=== PATIENT | female | born 1955 | race Caucasian/White ===

== ENCOUNTER 2017-02-27 16:31 | Inpatient (IN) | payer MEDICARE, OTHER ==
[~2017-02-27] VITALS: Ht 167.6 cm; Wt 86.4 kg
[2017-02-27 18:11] VITALS: BP 132/73
[2017-02-27] MEDS ORDERED: normal saline 1000ml 1,000 ML IV SCH (18:18)
[2017-02-27] MEDS ORDERED: HYDROcodone/acetaminophen 5mg/325mg tablet PO PRN (18:20)
[2017-02-27] MEDS ORDERED: ondansetron/PF 4mg/2ml inj IV PRN (18:20)
[2017-02-27] MEDS ORDERED: acetaminophen 325mg tablet PO PRN (18:20)
[2017-02-27] MEDS ORDERED: diphenhydrAMINE 25mg capsule PO PRN (18:20)
[2017-02-27] MEDS ORDERED: magnesium hydroxide 30ml (MOM) UD suspension PO PRN (18:20)
[2017-02-27] MEDS ORDERED: mag hydrox/Alum hydrox/simeth 30ml oral suspension PO PRN (18:20)
[2017-02-27] MEDS ORDERED: cyclobenzaprine 10mg tablet PO PRN (18:25)
[2017-02-27] MEDS ORDERED: haloperidol lactate 5mg/ml inj IM PRN (18:25)
[2017-02-27] MEDS ORDERED: loperamide 2mg capsule PO PRN (18:25)
[2017-02-27] MEDS ORDERED: LORazepam 1 MG tablet PO PRN (18:25)
[2017-02-27] MEDS ORDERED: haloperidol 5mg tablet PO PRN (18:25)
[2017-02-27] MEDS ORDERED: LORazepam 2 mg/ml vial IV PRN (18:25)
[2017-02-27] MEDS ORDERED: cloNIDine 0.1 mg tablet PO PRN (18:25)
[2017-02-27] MEDS ORDERED: dicyclomine 10 MG capsule PO PRN (18:25)
[2017-02-27] MEDS ORDERED: potassium Cl 20 mEq SR tablet PO PRN ×2 (18:30)
[2017-02-27] MEDS ORDERED: potassium Cl 40MEQ/NS 500ml 500 ML IV PRN ×2 (18:30)
[2017-02-27] MEDS: HYDROcodone/acetaminophen 10/325mg tab PO PRN (20:33)
[2017-02-27 20:56] LABS: CLARITY,URINE CLEAR (Clear); COLOR,URINE AMBER (Yellow); GLUCOSE, URINE NEGATIVE (Neg); KETONES,URINE TRACE mg/dl (Neg); LEUKOCYTE ESTERASE ,URINE NEGATIVE (Neg); NITRITES, URINE NEGATIVE (Neg); OCCULT BLOOD,URINE NEGATIVE (Neg); PH,URINE 5.5 (4.8-8.0); PROTEIN,URINE NEGATIVE (Neg); UROBILINOGEN,URINE 0.2 E.U/dL (0.2-1.0)
[2017-02-27 20:57] LABS: UA COLLECTION TYPE VOIDED
[2017-02-27 22:00] VITALS: BP 127/80
[2017-02-28] MEDS: HYDROcodone/acetaminophen 10/325mg tab PO PRN ×4 (05:28→19:00)
[2017-02-28 05:32] VITALS: BP 127/80
[2017-02-28 06:00] VITALS: BP 132/75
[2017-02-28 06:03] LABS: BASOPHILS % (AUTO) 0.6 % (0-1); EOSINOPHILS # (AUTO) 0.1 X10'3 (0-0.9); EOSINOPHILS % (AUTO) 1.3 % (0-6); HEMATOCRIT 40.8 % (35.0-45.0); HEMOGLOBIN 14.1 g/dl (12.0-16.0); LYMPHOCYTES # (AUTO) 1.5 X10'3 (1.1-4.8); LYMPHOCYTES % (AUTO) 25.1 % (21-51); MEAN CORPUSCULAR HGB CONC 34.6 % (33.0-36.5); MEAN PLATELET VOLUME 8.4 FL (7.4-10.4); MONOCYTES # (AUTO) 0.6 X10'3 (0-0.9); MONOCYTES % (AUTO) 9.7 % (2-12); NEUTROPHILS # (AUTO) 3.7 X10'3 (1.8-7.7); NEUTROPHILS % (AUTO) 63.3 % (42-75); PLATELET COUNT 238 X10'3 (140-440); RED BLOOD COUNT 3.92 X10'6 (4.20-5.60); RED CELL DISTRIBUTION WIDTH 13.7 % (11.5-14.5); WHITE BLOOD COUNT 5.8 X10'3 (4.5-11.0)
[2017-02-28 06:25] LABS: ALBUMIN 3.1 G/DL (3.4-5.0); AMYLASE 44 U/L (25-115); ANION GAP 6 (8-16); BLOOD UREA NITROGEN 4 MG/DL (7-18); BUN/CREATININE RATIO 6.8 (6.6-38.0); CALCIUM 9.1 MG/DL (8.5-10.1); CHLORIDE 104 MMOL/L (99-107); CREATININE 0.59 MG/DL (0.40-0.90); GLUCOSE 109 MG/DL (70-104); MAGNESIUM 1.6 MG/DL (1.5-2.4); PHOSPHORUS 3.5 MG/DL (2.3-4.5); POTASSIUM 3.8 MMOL/L (3.5-5.1); SODIUM 140 MMOL/L (135-145); TOTAL CARBON DIOXIDE 29.9 MMOL/L (24-32); eGFR > 90 ML/MIN
[2017-02-28] MEDS: thiamine inj. 100 MG, magnesium sulf injection 2 GM, MVI, adult No.4 with vit. K 10 ML ... IV SCH ×4 (08:17)
[2017-02-28 10:00] VITALS: BP 114/76
[2017-02-28] MEDS ORDERED: NO HOME MEDS (10:38)
[2017-02-28] MEDS ORDERED: HYDROcodone/acetaminophen 5mg/325mg tablet PO PRN (13:15)
[2017-02-28] MEDS ORDERED: cefazolin 1gm/NS 100mL 100 ML IV ONE (15:00)
[2017-02-28 19:00] VITALS: BP 103/63
[2017-02-28 22:30] VITALS: BP 126/69
[2017-03-01] VITALS (16 sets, daily range): BP systolic 100–141; BP diastolic 45–76
[2017-03-01 06:09] LABS: BASOPHILS % (AUTO) 0.5 % (0-1); EOSINOPHILS # (AUTO) 0.1 X10'3 (0-0.9); EOSINOPHILS % (AUTO) 2.1 % (0-6); HEMATOCRIT 38.3 % (35.0-45.0); HEMOGLOBIN 13.2 g/dl (12.0-16.0); LYMPHOCYTES # (AUTO) 1.2 X10'3 (1.1-4.8); LYMPHOCYTES % (AUTO) 18.4 % (21-51); MEAN CORPUSCULAR HEMOGLOBIN 36.1 PG (27.0-31.0); MEAN CORPUSCULAR HGB CONC 34.5 % (33.0-36.5); MEAN CORPUSCULAR VOLUME 104.6 FL (78-98); MEAN PLATELET VOLUME 8.2 FL (7.4-10.4); MONOCYTES # (AUTO) 0.6 X10'3 (0-0.9); MONOCYTES % (AUTO) 9.5 % (2-12); NEUTROPHILS # (AUTO) 4.5 X10'3 (1.8-7.7); NEUTROPHILS % (AUTO) 69.5 % (42-75); PLATELET COUNT 213 X10'3 (140-440); RED BLOOD COUNT 3.66 X10'6 (4.20-5.60); RED CELL DISTRIBUTION WIDTH 13.6 % (11.5-14.5); WHITE BLOOD COUNT 6.4 X10'3 (4.5-11.0)
[2017-03-01 06:21] LABS: ALBUMIN 2.9 G/DL (3.4-5.0); AMYLASE 40 U/L (25-115); ANION GAP 4 (8-16); BLOOD UREA NITROGEN 4 MG/DL (7-18); BUN/CREATININE RATIO 7.7 (6.6-38.0); CALCIUM 8.9 MG/DL (8.5-10.1); CHLORIDE 104 MMOL/L (99-107); CREATININE 0.52 MG/DL (0.40-0.90); GLUCOSE 112 MG/DL (70-104); MAGNESIUM 1.9 MG/DL (1.5-2.4); PHOSPHORUS 3.9 MG/DL (2.3-4.5); POTASSIUM 3.4 MMOL/L (3.5-5.1); SODIUM 138 MMOL/L (135-145); TOTAL CARBON DIOXIDE 29.7 MMOL/L (24-32); eGFR > 90 ML/MIN
[2017-03-01] MEDS ORDERED: ceFAZolin 1000mg inj ONE (07:01)
[2017-03-01] MEDS: LACTOBACILLUS RHAMNOSUS GG 15 billion unit sprinkle caps PO SCH (07:30)
[2017-03-01] MEDS: thiamine inj. 100 MG, magnesium sulf injection 2 GM, MVI, adult No.4 with vit. K 10 ML ... IV SCH ×4 (07:55)
[2017-03-01] MEDS ORDERED: ringers solution, lacted 1,000 ML IV SCH (08:27)
[2017-03-01] MEDS ORDERED: meperidine/PF 25mg/ml syringe IV PRN ×3 (08:30)
[2017-03-01] MEDS ORDERED: proCHLORperazine 10 MG/2 ml inj IV PRN (08:30)
[2017-03-01] MEDS ORDERED: ondansetron/PF 4mg/2ml inj IV PRN ×2 (08:30→12:30)
[2017-03-01] MEDS ORDERED: cefazolin 1gm/NS 100mL 100 ML IV ONE ×2 (08:30→12:30)
[2017-03-01 08:47] LABS: PARTIAL THROMBOPLASTIN TIME 26 SECONDS (22-32)
[2017-03-01] MEDS ORDERED: ondansetron/PF 4mg/2ml inj ONE (09:20)
[2017-03-01] MEDS ORDERED: sevoflurane 250ml liquid IH ONE (09:20)
[2017-03-01] MEDS ORDERED: dexamethasone sod phosphate 4mg/ml inj. ONE (09:20)
[2017-03-01] MEDS ORDERED: fentaNYL/PF 50MCG/1 ML 2ML syringe ONE ×2 (09:22→09:55)
[2017-03-01] MEDS ORDERED: midazolam 2 mg/2 ml injection ONE (09:23)
[2017-03-01] MEDS ORDERED: LIDOcaine 1%/PF (10mg/ml) 5ml vial ONE (09:43)
[2017-03-01] MEDS ORDERED: tranexamic acid inj. 1,000 MG in normal saline 100ml IV soln 90 ML IV ONE (10:45)
[2017-03-01] MEDS ORDERED: vancomycin 1,000mg inj ONE (11:57)
[2017-03-01] MEDS ORDERED: magnesium hydroxide 30ml (MOM) UD suspension PO PRN (12:30)
[2017-03-01] MEDS ORDERED: oxyCODONE IR 5mg (immed. release) tablet PO PRN (12:30)
[2017-03-01] MEDS ORDERED: bisacodyl 10mg suppository rectal RC PRN (12:30)
[2017-03-01] MEDS ORDERED: diphenhydrAMINE 25mg capsule PO PRN ×2 (12:30)
[2017-03-01] MEDS ORDERED: acetaminophen 325mg tablet PO PRN (12:30)
[2017-03-01] MEDS: acetaminophen 325mg tablet PO SCH ×2 (15:05→21:57)
[2017-03-01] MEDS: gabapentin 300mg capsule PO SCH ×2 (15:05→21:57)
[2017-03-01] MEDS ORDERED: NORMAL SALINE IV ONE (15:30)
[2017-03-01] MEDS ORDERED: TRANEXAMIC ACID IV ONE (15:30)
[2017-03-01] MEDS: cefazolin 1gm/NS 100mL 100 ML IV SCH (16:30)
[2017-03-01] MEDS ORDERED: vancomycin/NS 1 GM ADD-VANTAGE 250 ML IV SCH (20:00)
[2017-03-01] MEDS ORDERED: sennosides 8.6mg tablet PO SCH (21:00)
[2017-03-02] MEDS: acetaminophen 325mg tablet PO SCH ×2 (00:05→08:45)
[2017-03-02] MEDS: cefazolin 1gm/NS 100mL 100 ML IV SCH (00:07)
[2017-03-02] MEDS: HYDROcodone/acetaminophen 10/325mg tab PO PRN (00:07)
[2017-03-02 02:00] VITALS: BP 93/45
[2017-03-02] MEDS: oxyCODONE IR 5mg (immed. release) tablet PO PRN ×2 (04:36→08:48)
[2017-03-02 07:19] VITALS: BP 113/66
[2017-03-02 07:22] LABS: BASOPHILS % (AUTO) 0.1 % (0-1); EOSINOPHILS # (AUTO) 0.1 X10'3 (0-0.9); EOSINOPHILS % (AUTO) 1.1 % (0-6); HEMATOCRIT 33.5 % (35.0-45.0); HEMOGLOBIN 11.4 g/dl (12.0-16.0); LYMPHOCYTES # (AUTO) 1.5 X10'3 (1.1-4.8); LYMPHOCYTES % (AUTO) 17.4 % (21-51); MEAN CORPUSCULAR HEMOGLOBIN 35.6 PG (27.0-31.0); MEAN CORPUSCULAR HGB CONC 33.9 % (33.0-36.5); MEAN PLATELET VOLUME 8.7 FL (7.4-10.4); MONOCYTES # (AUTO) 0.9 X10'3 (0-0.9); MONOCYTES % (AUTO) 10.4 % (2-12); NEUTROPHILS # (AUTO) 6.1 X10'3 (1.8-7.7); PLATELET COUNT 261 X10'3 (140-440); RED BLOOD COUNT 3.19 X10'6 (4.20-5.60); RED CELL DISTRIBUTION WIDTH 13.8 % (11.5-14.5); WHITE BLOOD COUNT 8.6 X10'3 (4.5-11.0)
[2017-03-02 07:37] LABS: ALBUMIN 2.8 G/DL (3.4-5.0); AMYLASE 55 U/L (25-115); ANION GAP 6 (8-16); BLOOD UREA NITROGEN 7 MG/DL (7-18); BUN/CREATININE RATIO 7.8 (6.6-38.0); CALCIUM 8.7 MG/DL (8.5-10.1); CHLORIDE 103 MMOL/L (99-107); GLUCOSE 122 MG/DL (70-104); MAGNESIUM 2.2 MG/DL (1.5-2.4); PHOSPHORUS 4.4 MG/DL (2.3-4.5); POTASSIUM 3.6 MMOL/L (3.5-5.1); SODIUM 138 MMOL/L (135-145); TOTAL CARBON DIOXIDE 29.4 MMOL/L (24-32); eGFR 63 ML/MIN
[2017-03-02] MEDS ORDERED: multivitamins, therapeutics tablet PO SCH (08:30)
[2017-03-02] MEDS ORDERED: thiamine 100mg tablet PO SCH (08:30)
[2017-03-02] MEDS: LACTOBACILLUS RHAMNOSUS GG 15 billion unit sprinkle caps PO SCH (08:45)
[2017-03-02] MEDS: gabapentin 300mg capsule PO SCH (08:45)
[2017-03-02] MEDS ORDERED: HYDR-3972 PO (09:19)
[2017-03-02] MEDS ORDERED: magnesium oxide 400mg tablet PO SCH (16:00)
[2017-03-03] MEDS ORDERED: acetaminophen 325mg tablet PO PRN (12:30)
== END 2017-03-02 12:00 | disposition home or self-care (01) | DRG 483 ==
LOC: ORTHO 4S 17:57
PROVIDERS: ADMIT Internal Medicine; ATTEND Internal Medicine
PROC: 3E0T3BZ Introduction of Anesthetic Agent into Peripheral Nerves and Plexi, Percutaneous Approach (ICD-10-PCS; 2017-03-01)
PROC: 0RRK00Z Replacement of Left Shoulder Joint with Reverse Ball and Socket Synthetic Substitute, Open Approach (ICD-10-PCS; principal; 2017-03-01 09:20)
DX: S42.292A Other displaced fracture of upper end of left humerus, initial encounter for closed fracture (principal); D62 Acute posthemorrhagic anemia; E66.01 Morbid (severe) obesity due to excess calories; E78.5 Hyperlipidemia, unspecified; S80.02XA Contusion of left knee, initial encounter; E87.6 Hypokalemia; F10.10 Alcohol abuse, uncomplicated; F17.210 Nicotine dependence, cigarettes, uncomplicated; W01.0XXA Fall on same level from slipping, tripping and stumbling without subsequent striking against object, initial encounter; Z80.49 Family history of malignant neoplasm of other genital organs; Z80.0 Family history of malignant neoplasm of digestive organs; Z80.8 Family history of malignant neoplasm of other organs or systems; Z68.30 Body mass index [BMI] 30.0-30.9, adult; Y93.89 Activity, other specified; Y92.89 Other specified places as the place of occurrence of the external cause; Y99.8 Other external cause status
CPT/HCPCS: 36415; 71045; 73020; 73200; 73564; 80048; 81003; 82150; 83735; 84100; 85025; 85610; 85730; 87070; 93005; 93306; 97110; 97116; 97162; A4565; A6209; A6255; A6258; A6446; A7000; C9250; J0690; J1100; J2001; J2250; J2270; J2405; J3010; J3370; J3411; J3475; J7030; J7060; J7120

== ENCOUNTER 2017-03-17 11:19 | Outpatient (CLI) | payer MEDICARE, OTHER ==
[~2017-03-17 11:19] MED LIST: HYDR-3972 PO; NO HOME MEDS
== END 2017-03-17 12:05 | disposition home or self-care (01) ==
LOC: ORTHO 11:19
PROVIDERS: ATTEND Nurse Practitioner Family
DX: S42.202A Unspecified fracture of upper end of left humerus, initial encounter for closed fracture (principal); I89.0 Lymphedema, not elsewhere classified; F17.210 Nicotine dependence, cigarettes, uncomplicated; F10.10 Alcohol abuse, uncomplicated; Z98.890 Other specified postprocedural states; X58.XXXA Exposure to other specified factors, initial encounter; Y93.89 Activity, other specified; Y92.89 Other specified places as the place of occurrence of the external cause; Y99.8 Other external cause status
CPT/HCPCS: 73030; A6449

== ENCOUNTER 2017-04-26 09:55 | Outpatient (CLI) | payer MEDICARE, OTHER ==
[2017-04-26 10:04] VITALS: BP 160/94
== END 2017-04-26 10:30 | disposition home or self-care (01) ==
LOC: ORTHO 09:55
PROVIDERS: ATTEND Nurse Practitioner Family
DX: S42.202D Unspecified fracture of upper end of left humerus, subsequent encounter for fracture with routine healing (principal); F17.210 Nicotine dependence, cigarettes, uncomplicated; I89.0 Lymphedema, not elsewhere classified; Z56.0 Unemployment, unspecified; X58.XXXD Exposure to other specified factors, subsequent encounter
CPT/HCPCS: 73030; 99213

== ENCOUNTER 2017-06-28 08:55 | Outpatient (CLI) | payer MEDICARE, OTHER | END 2017-06-28 09:52 | disposition home or self-care (01) | LOC: ORTHO 08:55 | PROVIDERS: ATTEND Nurse Practitioner Family | DX: S42.202D Unspecified fracture of upper end of left humerus, subsequent encounter for fracture with routine healing (principal); F17.200 Nicotine dependence, unspecified, uncomplicated; Z56.0 Unemployment, unspecified; W01.0XXD Fall on same level from slipping, tripping and stumbling without subsequent striking against object, subsequent encounter | CPT/HCPCS: 73030 ==

== ENCOUNTER 2018-10-27 22:27 | Emergency (ER) | payer MEDICARE ==
[~2018-10-27] VITALS: Ht 167.6 cm; Wt 90.9 kg
[2018-10-27] MEDS ORDERED: morphine 4 MG/ML inj SYRINge IV ONE (22:55)
[2018-10-27 22:59] LABS: BASOPHILS # (AUTO) 0.1 X10'3 (0-0.2); HEMOGLOBIN 13.4 g/dl (12.0-16.0); LYMPHOCYTES # (AUTO) 1.7 X10'3 (1.1-4.8); MONOCYTES # (AUTO) 0.6 X10'3 (0-0.9); NEUTROPHILS # (AUTO) 5.4 X10'3 (1.8-7.7); WHITE BLOOD COUNT 7.8 X10'3 (4.5-11.0)
[2018-10-27 23:01] LABS: BASOPHILS % (AUTO) 1.3 % (0-1); EOSINOPHILS % (AUTO) 0.6 % (0-6); LYMPHOCYTES % (AUTO) 21.1 % (21-51); MEAN CORPUSCULAR HEMOGLOBIN 39.5 PG (27.0-31.0); MEAN CORPUSCULAR HGB CONC 34.4 g/dL (33.0-36.5); MEAN CORPUSCULAR VOLUME 114.8 FL (78-98); MEAN PLATELET VOLUME 7.7 FL (7.4-10.4); MONOCYTES % (AUTO) 7.6 % (2-12); NEUTROPHILS % (AUTO) 69.4 % (42-75); PLATELET COUNT 245 X10'3 (140-440); RED CELL DISTRIBUTION WIDTH 14.2 % (11.5-14.5)
[2018-10-27 23:12] LABS: PARTIAL THROMBOPLASTIN TIME 25 SECONDS (22-32)
[2018-10-27 23:14] LABS: ALANINE AMINOTRANSFERASE 35 U/L (12-78); ALBUMIN 2.4 G/DL (3.4-5.0); ALBUMIN/GLOBULIN RATIO 0.7 (1.1-1.5); ALKALINE PHOSPHATASE 170 IU/L (46-116); ANION GAP 11 (8-16); ASPARTATE AMINO TRANSFERASE 107 U/L (10-37); BILIRUBIN,TOTAL 0.8 MG/DL (0.1-1.0); BLOOD UREA NITROGEN 2 MG/DL (7-18); BUN/CREATININE RATIO 3.2 (6.6-38.0); CALCIUM 8.2 MG/DL (8.5-10.1); CHLORIDE 102 MMOL/L (99-107); CREATININE 0.63 MG/DL (0.40-0.90); GLUCOSE 104 MG/DL (70-104); POTASSIUM 3.3 MMOL/L (3.5-5.1); SODIUM 138 MMOL/L (135-145); TOTAL CARBON DIOXIDE 24.7 MMOL/L (24-32); TOTAL PROTEIN 5.7 G/DL (6.4-8.2); eGFR > 90 ML/MIN
[2018-10-27 23:18] LABS: ETHANOL 0.139 GM/DL (0.0-0.010); TROPONIN I < 0.04 NG/ML (0.0-0.05)
[2018-10-27 23:26] LABS: PLATELET ESTIMATE NORMAL
[2018-10-28] MEDS ORDERED: morphine 4 MG/ML inj SYRINge IV ONE (01:45)
[2018-10-28] MEDS ORDERED: propofol 10mg/ml 20ml vial IV ONE (02:00)
[2018-10-28] MEDS ORDERED: ceFAZolin 1GM/D5W- ADD-VANTAGE 50 ML IV ONE (02:55)
[2018-10-28] MEDS ORDERED: TETanus/Pertussis (Acell)/Diphther VAC/PF (Tdap-Adult) 0.5ml syringe IM ONE (03:00)
--- NOTE | 2018-10-28 03:26 | NUR ---
CALLED [facility] AT 03:25 FOR TRANSFER TO [facility]. WILL BE GIVING ME CALL BACK WITH [facility]
--- NOTE | 2018-10-28 03:57 | NUR ---
PT TRANSFERED TO [facility] VIA [facility] FOR ORTHOPEDIC CARE. ATTEMPTED REDUCTION OF FRACTURE. WOUND ON LATERAL LOWER THIGH DRESSED W/BETADINE SOAKED GAUZE, DRY GAUZE AND GAUZE ROLL. AFTER PROCEDURE PT WAS TRANSFRED BEFORE ADMINISTRATION OF ABX OR TETANUS BOOSTER. REPORT CALLED TO YENNIFER AT [facility].
[2018-10-28 04:07] VITALS: BP 132/84
== END 2018-10-28 04:10 | disposition short-term general hospital (02) ==
LOC: ER 22:28
DX: S72.492B Other fracture of lower end of left femur, initial encounter for open fracture type I or II (principal); Z79.899 Other long term (current) drug therapy; Z56.0 Unemployment, unspecified; W06.XXXA Fall from bed, initial encounter; Y93.89 Activity, other specified; Y92.89 Other specified places as the place of occurrence of the external cause; Y99.8 Other external cause status
CPT/HCPCS: 27510; 36415; 71045; 73502; 73560; 73564; 80053; 80320; 84484; 85025; 85610; 85730; 93005; 94760; 96374; 96376; 99152; 99285; J2270; J2704; 27550

== ENCOUNTER 2024-04-25 10:23 | Emergency (ER) | payer MEDICARE, MEDICAID ==
[~2024-04-25] VITALS: Ht 167.6 cm; Wt 86.4 kg
[2024-04-25] MEDS: ketorolac trometh 15mg/ml vial 15 MG/ML ML IM ONE (12:51)
[2024-04-25] MEDS ORDERED: ONDA-243 PO (13:08)
[2024-04-25] MEDS ORDERED: CYCL-1 PO (13:08)
[2024-04-25] MEDS ORDERED: HYDR-3965 PO (13:08)
[2024-04-25 13:14] VITALS: BP 134/62; PULSE 82; RESP 18; TEMP 98.7; O2SAT 99
== END 2024-04-25 13:15 | disposition home or self-care (01) ==
LOC: ER 10:23
DX: G89.29 Other chronic pain (principal); M54.50 Low back pain, unspecified
CPT/HCPCS: 96372; 99284; J1885; 99285